=== PATIENT | male | born 1960 | race Caucasian/White ===

== ENCOUNTER 2022-07-08 16:24 | Observation (INO) | payer OTHER ==
[~2022-07-08] VITALS: Ht 177.8 cm; Wt 84.8 kg
[2022-07-08 16:34] VITALS: BP_SYST 163
[2022-07-08] MEDS ORDERED: ROSU20TA2 PO (16:39)
[2022-07-08] MEDS ORDERED: ADENOSINE 6MG/2ML VIAL ONE (17:05)
[2022-07-08] MEDS ORDERED: ADENOSINE 6MG/2ML VIAL IVP ONE ×2 (17:15)
[2022-07-08] MEDS ORDERED: METOPROLOL TARTRATE 5 MG/5 ML AMPUL IVP ONE ×2 (17:30→17:45)
[2022-07-08] MEDS ORDERED: dilTIAZem HCL IVP 5 MG/ML VIAL IVP ONE (17:45)
[2022-07-08 17:53] LABS: BASOPHILS % (AUTO) 0.6 % (0.0-2.0); EOSINOPHILS # (AUTO) 0.1 K/uL (0.0-0.4); EOSINOPHILS % (AUTO) 1.3 % (0.0-4.0); HEMATOCRIT 45.2 % (36-54); HEMOGLOBIN 15.7 g/dL (14.0-18.0); LYMPHOCYTES # (AUTO) 1.5 K/uL (1.0-5.5); LYMPHOCYTES % (AUTO) 27.1 % (20.5-51.5); MEAN CORPUSCULAR HEMOGLOBIN 30 pg (27-31); MEAN CORPUSCULAR HGB CONC 35 % (32-36); MEAN CORPUSCULAR VOLUME 88 fL (79.0-98.0); MONOCYTES # (AUTO) 0.5 K/uL (0.0-1.0); MONOCYTES % (AUTO) 8.3 % (1.7-9.3); NEUTROPHILS # (AUTO) 3.4 K/uL (1.8-7.7); NEUTROPHILS % (AUTO) 62.7 % (40.0-70.0); RED BLOOD CELL COUNT(AUTO) 5.15 MIL/uL (4.2-6.2); RED CELL DISTRIBUTION WIDTH 12.7 % (9.0-15.0); WHITE BLOOD COUNT (AUTO) 5.4 K/uL (4.8-10.8)
[2022-07-08 18:00] LABS: PLATELET COUNT (AUTO) 157 K/uL (130-430)
[2022-07-08] MEDS ORDERED: VERAPAMIL HCL 120 MG TABLET.SA PO ONE ×2 (18:00→18:25)
[2022-07-08 18:10] LABS: ANION GAP 9 (5-15); CALCIUM 8.8 mg/dL (8.4-11.0); CHLORIDE 102 mmol/L (98-107); CREATININE 0.72 mg/dL (0.55-1.30); GLUCOSE 142 mg/dL (70-99); POTASSIUM 3.7 mmol/L (3.5-5.1); SODIUM SERUM 139 mmol/L (136-145); UREA NITROGEN, BLOOD 19 mg/dL (8-21)
[2022-07-08 18:16] LABS: GFR AFRICAN AMERICAN 143 mL/min (>90)
[2022-07-08 18:32] LABS: ALBUMIN 4.2 g/dL (3.4-4.8); TOTAL BILIRUBIN 0.4 mg/dL (0.0-1.0)
[2022-07-08 18:34] LABS: ALANINE AMINOTRANSFERASE 33 U/L (12-78); ASPARTATE AMINOTRANSFERASE 24 U/L (10-37)
[2022-07-08] MEDS ORDERED: VERAPAMIL HCL 80 MG TABLET PO ONE (20:15)
[2022-07-08 22:43] VITALS: BP_SYST 146
[2022-07-09 01:37] VITALS: BP_SYST 136
[2022-07-09 06:19] LABS: BASOPHILS % (AUTO) 0.5 % (0.0-2.0); EOSINOPHILS # (AUTO) 0.1 K/uL (0.0-0.4); EOSINOPHILS % (AUTO) 1.3 % (0.0-4.0); HEMATOCRIT 44.1 % (36-54); HEMOGLOBIN 15.3 g/dL (14.0-18.0); LYMPHOCYTES # (AUTO) 1.4 K/uL (1.0-5.5); LYMPHOCYTES % (AUTO) 25.7 % (20.5-51.5); MEAN CORPUSCULAR HEMOGLOBIN 31 pg (27-31); MEAN CORPUSCULAR HGB CONC 35 % (32-36); MEAN CORPUSCULAR VOLUME 88 fL (79.0-98.0); MONOCYTES # (AUTO) 0.4 K/uL (0.0-1.0); MONOCYTES % (AUTO) 7.3 % (1.7-9.3); NEUTROPHILS # (AUTO) 3.6 K/uL (1.8-7.7); NEUTROPHILS % (AUTO) 65.2 % (40.0-70.0); PLATELET COUNT (AUTO) 140 K/uL (130-430); RED CELL DISTRIBUTION WIDTH 13.1 % (9.0-15.0); WHITE BLOOD COUNT (AUTO) 5.6 K/uL (4.8-10.8)
[2022-07-09 07:53] VITALS: BP_SYST 126
[2022-07-09 08:54] LABS: ALBUMIN 4.2 g/dL (3.4-4.8); CALCIUM 8.9 mg/dL (8.4-11.0); CREATININE 0.92 mg/dL (0.55-1.30); POTASSIUM 3.6 mmol/L (3.5-5.1); TOTAL BILIRUBIN 0.6 mg/dL (0.0-1.0)
[2022-07-09] MEDS ORDERED: DIPHENHYDRAMINE HCL 50 MG CAPSULE PO PRN (11:30)
[2022-07-09] MEDS ORDERED: SOTALOL (AF) 80 MG TABLET PO ONE (12:15)
[2022-07-09] MEDS ORDERED: APIXABAN 2.5 MG TABLET PO ONE (12:15)
[2022-07-09 12:35] VITALS: BP_SYST 150
[2022-07-09 12:48] LABS: FREE T4 (FREE THYROXINE) 0.9 ng/dl (0.8-1.5); THYROID STIMULATING HORMONE 3.05 uIu/mL (0.36-3.74)
[2022-07-09 17:00] VITALS: BP_SYST 121
[2022-07-09 20:09] VITALS: BP_SYST 116
[2022-07-09] MEDS: APIXABAN 2.5 MG TABLET PO SCH (20:18)
[2022-07-09] MEDS ORDERED: SOTALOL (AF) 80 MG TABLET PO SCH (21:00)
[2022-07-10 08:00] VITALS: BP_SYST 143
[2022-07-10] MEDS ORDERED: REGADENOSON 0.4 MG/5 ML SYRINGE IVP ONE (09:30)
[2022-07-10] MEDS ORDERED: amLODIPine BESYLATE 5 MG TABLET PO SCH (11:15)
[2022-07-10] MEDS ORDERED: APIX2.5T PO (11:26)
[2022-07-10] MEDS ORDERED: BET(AF)80 PO (11:26)
[2022-07-10] MEDS ORDERED: AMLO5TAB4 PO (11:26)
[2022-07-10 11:51] LABS: CALCIUM 9.2 mg/dL (8.4-11.0); CREATININE 0.91 mg/dL (0.55-1.30); POTASSIUM 4.7 mmol/L (3.5-5.1)
[2022-07-10 12:06] LABS: THYROID STIMULATING HORMONE 2.46 uIu/mL (0.36-3.74)
[2022-07-10 12:42] VITALS: BP_SYST 119
[2022-07-10] MEDS: APIXABAN 2.5 MG TABLET PO SCH (14:13)
[2022-07-10 14:36] VITALS: BP_SYST 139
== END 2022-07-10 17:54 | disposition home or self-care (01) ==
LOC: SED 16:24 → STU 19:59
PROVIDERS: ADMIT Internal Medicine; ATTEND Internal Medicine
DX: I48.0 Paroxysmal atrial fibrillation (principal); Z20.822 Contact with and (suspected) exposure to COVID-19; E78.5 Hyperlipidemia, unspecified; I95.9 Hypotension, unspecified; I48.20 Chronic atrial fibrillation, unspecified; I47.1 Supraventricular tachycardia; Z79.899 Other long term (current) drug therapy
CPT/HCPCS: 96365; 96375; 80053 ×2; 83880; 85025 ×2; 84484 ×3; 36415 ×3; 93005 ×3; 71045; 99291; 87426; 84439; 83735; 84443 ×2; 93306; 80048; 93017; J0153; J3490 ×3; G0378 ×3; Q0163; J2785